=== PATIENT | female | born 1965 | race Caucasian/White ===

== ENCOUNTER 2017-12-20 17:19 | Emergency (ER) | payer OTHER ==
[~2017-12-20] VITALS: Ht 167.6 cm; Wt 53.1 kg
[~2017-12-20 17:19] MED LIST: APLENZIN174 MG PO; BUPROPION XL150 MG PO; IBUPROFEN800 MG PO; ZOFRAN ODT4 M1 SL
[2017-12-20 18:24] LABS: ABSOLUTE BASOPHIL COUNT 0 /CUMM (0.0-0.2); ABSOLUTE EOSINOPHIL COUNT 0.1 /CUMM (0.0-0.7); ABSOLUTE GRANULOCYTE CT 3.4 /CUMM (1.4-6.5); ABSOLUTE LYMPH COUNT 1.6 /CUMM (1.2-3.4); ABSOLUTE MONOCYTE COUNT 0.4 /CUMM (0.10-0.60); BASOPHIL % 0.8 % (0.0-2.0); EOSINOPHIL % 1.4 % (0-5); GRANULOCYTE % 61.4 % (42.2-75.2); HEMATOCRIT 38.7 % (37-47); MEAN CORPUSCULAR HGB 30.1 PG (27.0-31.0); MEAN CORPUSCULAR HGB CONC 33.5 G/DL (33.0-37.0); MEAN CORPUSCULAR VOLUME 89.7 FL (81.0-99.0); MEAN PLATELET VOLUME 8.8 FL (7.4-10.4); PLATELET COUNT 223 /CUMM (130-400); RBC DISTRIBUTION WIDTH 13.4 % (11.5-14.5); RED BLOOD CELL CT 4.31 /CUMM (4.20-5.40); WHITE BLOOD CELL COUNT 5.5 /CUMM (4.8-10.8)
--- NOTE | 2017-12-20 18:28 | ED GENERAL ADULT ---
History of Present Illness General Chief Complaint: General Adult Stated Complaint: DIARRIAH X1 WEEK DX FLU LAST WK Source: patient Exam Limitations: no limitations Vital Signs & Intake/Output Vital Signs & Intake/Output Vital Signs Date Time Temp Pulse Resp B/P B/P Pulse O2 O2 Flow FiO2 Mean Ox Delivery Rate 12/20 1915 Room Air 12/20 1754 97.1 72 18 107/66 94 Room Air Allergies Coded Allergies: topiramate (From TOPAMAX) (SEIZURES 10/25/17) Reconcile Medications Bupropion HCl (Bupropion XL) 150 MG TAB.ER.24H 1 TAB PO QPM MENTAL HEALTH ( Reported) Triage Note: PT STATES SHE WAS DIAGNOSED WITH THE FLU LAST WEEK AND PT STATES NOW SHE CANT SEEM TO KEEP ANYTHING IN HER N/V/D FOR 1 WEEK Triage Nurses Notes Reviewed? yes Onset: Abrupt Duration: day(s): Timing: recent history HPI: 12/20/17 7 pm 52-year-old female presents to the emergency department with nausea and diarrhea. She also has crampy lower abdominal pain. She was recently seen and evaluated and diagnosed with influenza. She says her influenza swab was positive. Now she presents with significant diarrhea and is feeling dehydrated. She also admits abdominal cramping. The onset of the symptoms was abrupt. The duration has been since . The severity is significant as her symptoms required her to come to the emergency department for care. (Ashkan Trent DO) Past History Travel History Traveled to [place] past 21 day No Medical History Any Pertinent Medical History? see below for history Neurological: NONE EENT: NONE Cardiovascular: NONE Respiratory: NONE Gastrointestinal: NONE Hepatic: NONE Renal: NONE Musculoskeletal: NONE Psychiatric: NONE Endocrine: NONE Blood Disorders: NONE Surgical History Surgical History: appendectomy Psychosocial History Who do you live with Family Services at Home None What is your primary language Khmer Tobacco Use: Never used ETOH Use: denies use Illicit Drug Use: denies illicit drug use Family History Hx Contributory? No (Ashkan Trent DO) Review of Systems Review of Systems Constitutional: Reports: see HPI, chills. Denies: fever. EENTM: Denies: visual changes. Respiratory: Reports: cough. Denies: short of breath. Cardiovascular: Denies: see HPI. GI: Reports: see HPI, diarrhea, nausea. Genitourinary: Reports: no symptoms. Musculoskeletal: Reports: muscle pain. Skin: Denies: rash. Neurological/Psychological: Reports: no symptoms. Hematologic/Endocrine: Reports: no symptoms. Immunologic/Allergic: Reports: no symptoms. (Ashkan Trent DO) Physical Exam Physical Exam General Appearance: alert, awake, anxious, mild distress Head: atraumatic, normal appearance Eyes: Bilateral: normal appearance, PERRL, EOMI. Ears, Nose, Throat: normal pharynx, dry mucous membranes Neck: normal inspection, supple Respiratory: normal breath sounds, chest non-tender, no respiratory distress Cardiovascular: regular rate/rhythm Peripheral Pulses: 4+ radial (R), 4+ radial (L) Gastrointestinal: soft, non-tender Back: normal range of motion Extremities: normal range of motion Neurologic/Psych: no motor/sensory deficits, awake, alert, oriented x 3 Skin: intact, normal color, warm/dry Core Measures ACS in differential dx? No CVA/TIA Diagnosis: No Sepsis Present: No Sepsis Focused Exam Completed? No (Ashkan Trent DO) Progress Differential Diagnoses I considered the following diagnoses in my evaluation of the patient: [ Dehydration, electrolyte derangement, diverticulitis,] Plan of Care: Orders Procedure Date/time Status COMPREHENSIVE METABOLIC PANEL 12/20 1742 Complete CBC WITHOUT DIFFERENTIAL 12/20 174 Complete Current Medications Sig/Crystal Start time Last Medication Dose Stop Time Status Admin Dicyclomine HCl 20 MG ONCE ONE 12/20 183 CAN (Bentyl Injection) 12/20 1831 Laboratory Tests 12/20/17 1800: Anion Gap 13, Estimated GFR 58 L, BUN/Creatinine Ratio 19.0, Glucose 83, Calcium 10.2, Total Bilirubin 0.8, AST 24, ALT 25, Alkaline Phosphatase 51, Total Protein 7.3, Albumin 4.9, Globulin 2.4, Albumin/Globulin Ratio 2.0, CBC w Diff NO MAN DIFF REQ, RBC 4.31, MCV 89.7, MCH 30.1, MCHC 33.5, RDW 13.4, MPV 8.8 , Gran % 61.4, Lymphocytes % 29.7, Monocytes % 6.7, Eosinophils % 1.4, Basophils % 0.8, Absolute Granulocytes 3.4, Absolute Lymphocytes 1.6, Absolute Monocytes 0.4, Absolute Eosinophils 0.1, Absolute Basophils 0 Initial ED EKG: none (Ashkan Trent DO) Comments: PT IS FEELING MUCH BETTER AFTER IV HYDRATION (Ash MCCAIN,Alexis Rojas) Departure Departure Condition: Stable Clinical Impression Primary Impression: Influenza Secondary Impressions: Abdominal pain, Dehydration Referrals: Eric MCCAIN,Tico Rojas (PCP/Family) Departure Forms: Customer Survey General Discharge Information Comments The patient was ordered Bentyl. She is also given 1 L of IV fluids. Her abdomen was reevaluated and is soft and nontender. Assuming she has no further episodes of vomiting and feels better, she may be discharged after IV fluids and follow- up with her doctor this week. She should return to the emergency department for. She was signed out to Dr. Aleman at 7:30 PM. (Ashkan Trent DO) Departure Disposition: HOME OR SELF CARE Additional Instructions: RETURN IF SYMPTOMS WORSEN OR FOR ANY CONCERNS (Ash MCCAIN,Alexis Rojas) Critical Care Note Critical Care Note Critical Care Time: non-applicable (Ashkan Trent DO)
[2017-12-20 21:18] VITALS: BP 103/59
== END 2017-12-20 21:18 ==
LOC: ERH 17:19
PROVIDERS: Physician Assistant Medical
DX: J11.1 Influenza due to unidentified influenza virus with other respiratory manifestations (principal); E86.0 Dehydration
CPT/HCPCS: 96374; J0131; J0500